=== PATIENT | female | born 1980 | race Two or more races ===

== ENCOUNTER 2022-10-03 14:15 | Inpatient (IN) | payer OTHER ==
[~2022-10-03] VITALS: Ht 162.6 cm; Wt 3.2 kg
[2022-10-19] MEDS ORDERED: PRENATAL 19 CH1 EACH PO (08:26)
== END 2022-10-21 13:54 | disposition home or self-care (01) | DRG 785 ==
LOC: LDR 10-16 14:15 → O/R 10-19 07:45 → OB/GYN 10-19 13:42
PROVIDERS: ADMIT Obstetrics & Gynecology Maternal & Fetal Medicine; ATTEND Obstetrics & Gynecology Maternal & Fetal Medicine
PROC: 0UB70ZZ Excision of Bilateral Fallopian Tubes, Open Approach (ICD-10-PCS; 2022-10-19)
PROC: 4A1HXCZ Monitoring of Products of Conception, Cardiac Rate, External Approach (ICD-10-PCS; 2022-10-19)
PROC: 10D00Z1 Extraction of Products of Conception, Low, Open Approach (ICD-10-PCS; principal; 2022-10-19 10:00)
DX: O33.8 Maternal care for disproportion of other origin (principal); Z30.2 Encounter for sterilization; Z3A.38 38 weeks gestation of pregnancy; Z37.0 Single live birth; Z20.822 Contact with and (suspected) exposure to COVID-19